=== PATIENT | female | born 1950 | race Caucasian/White ===

== ENCOUNTER 2025-02-22 18:30 | Inpatient (IN) | payer OTHER, MEDICAID ==
[~2025-02-22] VITALS: Ht 167.6 cm; Wt 82.2 kg
[2025-02-22] MEDS: IV NORMAL SALINE 250 ML BAG IV ONE (19:08)
[2025-02-22 19:14] LABS: PLATELET COUNT (AUTO) 167 K/uL (179-408); RED BLOOD CELL COUNT(AUTO) 2.98 MIL/uL (3.63-4.92); RED CELL DISTRIBUTION WIDTH 14.5 % (12.3-17.7); WHITE BLOOD COUNT (AUTO) 7.7 K/uL (3.8-11.8)
[2025-02-22 19:21] LABS: *BILIRUBIN,URIN NEGATIVE (NEGATIVE); *BLOOD, URINE NEGATIVE (NEGATIVE); *CLARITY,URINE CLEAR (CLEAR); *COLOR,URINE YELLOW (YELLOW); *KETONES,URINE NEGATIVE (NEGATIVE); *UROBILINOGEN,URINE 0.2 E.U./dl (NORMAL); LEUKOCYTE ESTERASE ,URINE NEGATIVE (NEGATIVE); NITRITE, URINE NEGATIVE (NEGATIVE); UGLUCOSE NEGATIVE (NEGATIVE)
[2025-02-22] MEDS ORDERED: ATOR20TA PO (19:21)
[2025-02-22] MEDS ORDERED: ACET325T53 PO (19:21)
[2025-02-22] MEDS ORDERED: NIFE-35 PO (19:21)
[2025-02-22] MEDS ORDERED: METO-357 PO (19:21)
[2025-02-22] MEDS ORDERED: ACYC200C31 PO (19:21)
[2025-02-22] MEDS ORDERED: FURO40TA5 PO (19:21)
[2025-02-22] MEDS ORDERED: CINA30TA6 PO (19:21)
[2025-02-22 19:22] LABS: *PROTEIN,URINE 3+ (NEGATIVE)
[2025-02-22 19:23] LABS: CREATININE 1.9 mg/dL (0.6-1.3); SODIUM SERUM 140 mmol/L (136-145); UREA NITROGEN, BLOOD 21 mg/dL (7-18)
[2025-02-22 19:29] LABS: ASPARTATE AMINOTRANSFERASE 13 U/L (15-37); TOTAL PROTEIN, SERUM 6.3 g/dL (6.4-8.2)
[2025-02-22] MEDS ORDERED: PIPERACILLIN/TAZOBACTAM/D5W 50 ML IV ONE (19:32)
[2025-02-22 19:34] LABS: *AMPHETAMINE, URINE NEGATIVE (NEGATIVE); *BARBITURATE, URINE NEGATIVE (NEGATIVE); *BENZODIAZEPINE, URINE NEGATIVE (NEGATIVE); *CANNABINOID, URINE NEGATIVE (NEGATIVE); *COCCAINE, URINE NEGATIVE (NEGATIVE); *OPIATE, URINE POSITIVE (NEGATIVE); *PHENCYCLIDINE SCREEN,URINE NEGATIVE (NEGATIVE); FENTANYL, URINE NEGATIVE (NEGATIVE)
[2025-02-22] MEDS: PIPERACILLIN SODIUM/TAZOBACTAM 3.375 G in IV DEXTROSE 5% 50 ML IV ONE (19:46)
[2025-02-22] MEDS ORDERED: MAGNESIUM HYDROXIDE 30 ML LIQUID UDC PO PRN (23:45)
[2025-02-22] MEDS ORDERED: REMEDY ESSENTIAL ZINC PASTE 113 GM TP PRN (23:45)
[2025-02-22] MEDS ORDERED: ONDANSETRON 4 MG/2 ML VIAL IV PRN (23:45)
[2025-02-23 00:45] VITALS: BP 131/47; TEMP 101; O2SAT 96
[2025-02-23] MEDS: ACETAMINOPHEN 325 MG TABLET PO PRN (01:59)
[2025-02-23] MEDS: VANCOMYCIN HCL 1,500 MG in IV DEXTROSE 5% 500 ML IV ONE (04:00)
[2025-02-23] MEDS ORDERED: VANCOMYCIN HCL 500 MG VIAL ONE (05:09)
[2025-02-23] MEDS ORDERED: VANCOMYCIN 1000 MG VIAL ONE (05:09)
[2025-02-23] MEDS: PANTOPRAZOLE SODIUM 40 MG TABLET.DR PO SCH (06:24)
[2025-02-23 06:28] LABS: PLATELET COUNT (AUTO) 160 K/uL (179-408); RED BLOOD CELL COUNT(AUTO) 2.59 MIL/uL (3.63-4.92); RED CELL DISTRIBUTION WIDTH 14.5 % (12.3-17.7); WHITE BLOOD COUNT (AUTO) 7.1 K/uL (3.8-11.8)
[2025-02-23 06:43] LABS: CREATININE 2.6 mg/dL (0.6-1.3); SODIUM SERUM 140 mmol/L (136-145); UREA NITROGEN, BLOOD 30 mg/dL (7-18)
[2025-02-23 07:41] VITALS: BP 123/62; TEMP 98.7; O2SAT 97
[2025-02-23] MEDS ORDERED: CEFEPIME HCL 1 G in IV DEXTROSE 5% 50 ML IV ONE (08:00)
[2025-02-23] MEDS: FUROSEMIDE 40 MG TABLET PO SCH (08:19)
[2025-02-23] MEDS: ACYCLOVIR 200 MG CAPSULE PO SCH (08:19)
[2025-02-23] MEDS ORDERED: CEFEPIME HCL 1 G in IV DEXTROSE 5% 50 ML IV SCH ×2 (09:00→20:00)
[2025-02-23] MEDS ORDERED: CINACALCET HCL 30 MG TABLET PO SCH ×2 (09:00)
[2025-02-23] MEDS ORDERED: ATORVASTATIN 20 MG TABLET PO SCH ×2 (21:00)
[2025-02-24] MEDS ORDERED: VANCOMYCIN IV 500 MG in IV DEXTROSE 5% 100 ML IV PRN (08:00)
== END 2025-02-23 10:43 | disposition left against medical advice (07) | DRG 871 ==
LOC: ER 18:35 → TELE3 19:31
PROVIDERS: ADMIT Registered Nurse Psychiatric/Mental Health; ATTEND Registered Nurse Psychiatric/Mental Health
DX: A41.9 Sepsis, unspecified organism (principal); G92.8 Other toxic encephalopathy; N18.6 End stage renal disease; I12.0 Hypertensive chronic kidney disease with stage 5 chronic kidney disease or end stage renal disease; N25.81 Secondary hyperparathyroidism of renal origin; C90.00 Multiple myeloma not having achieved remission; E44.0 Moderate protein-calorie malnutrition; D69.6 Thrombocytopenia, unspecified; Z53.29 Procedure and treatment not carried out because of patient's decision for other reasons; Z99.2 Dependence on renal dialysis; Z96.641 Presence of right artificial hip joint; E78.5 Hyperlipidemia, unspecified; R73.9 Hyperglycemia, unspecified; Z90.12 Acquired absence of left breast and nipple; E88.09 Other disorders of plasma-protein metabolism, not elsewhere classified; E66.9 Obesity, unspecified; D63.1 Anemia in chronic kidney disease; Z88.8 Allergy status to other drugs, medicaments and biological substances; Z85.3 Personal history of malignant neoplasm of breast; Z92.21 Personal history of antineoplastic chemotherapy; Z79.899 Other long term (current) drug therapy; Z68.29 Body mass index [BMI] 29.0-29.9, adult; I50.9 Heart failure, unspecified; Z86.718 Personal history of other venous thrombosis and embolism; F01.50 Vascular dementia, unspecified severity, without behavioral disturbance, psychotic disturbance, mood disturbance, and anxiety; D53.9 Nutritional anemia, unspecified
CPT/HCPCS: 36415; 70450; 71045; 83605; 83735; 84100; 84443; 85025; 85730; 87040; A6213; G0378; J0692; J2543; J3373; J3374; J7060